=== PATIENT | female | born 1960 | race African-American/Black ===

== ENCOUNTER 2021-06-30 21:07 | Emergency (ER) | payer OTHER, SELFPAY ==
--- NOTE | ~2021-06-30 | XR_ITS ---
EXAM: XR ankle LT min 3V HISTORY: left ankle pain, FALL COMPARISON: None available FINDINGS: Normal mineralization. No acute fracture or dislocation. No lytic or blastic lesion. Old m edial malleolus avulsion fragments. Mild degenerative change at the tibiotalar joint. Achilles and pl margy enthesopathy. No erosion or periosteal change. Soft tissues within normal limits. IMPRESSION: No acute osseous finding in the left ankle. Reviewed, dictated and finalized at location K.
--- NOTE | ~2021-06-30 | CT_ITS ---
EXAMINATION: CT cervical spine wo con DATE: 06/30/2021 22:03 INDICATION: trauma TECHNIQUE: Computed tomography (CT) of the cervical spine was performed without intravenous contrast. Automated exposure control and iterative reconstruction technique were employed. The dose-length pro duct was 634.42 mGy-cm. COMPARISON: None FINDINGS: Counting reference: Craniocervical junction. There are seven cervical type vertebral bodies. Anatomic Variants: None. Vertebral Body Alignment: Intact. Craniocervical junction: Atlantooccipital and atlantoaxial effusion. Alignment intact. Osseous structures/fracture: No evidence of a lytic or blastic process in the visualized spine. N o evidence of acute fracture. Cervical soft tissues: The paraspinal soft tissues planes are maintained. Degenerative changes: Multilevel degenerative disc disease including prominent osteophyte formation. Right C5-6 severe neural foraminal narrowing. Severe central canal stenosis at C5-6. IMPRESSION: No acute fracture or traumatic malalignment in the cervical spine. Reviewed, dictated and finalized at location K.
--- NOTE | ~2021-06-30 | XR_ITS ---
EXAM: XR lumbar spine 2-3V HISTORY: lumbar pain, fall COMPARISON: None available FINDINGS: 5 nonrib-bearing lumbar-type vertebral bodies. Pedicles intact. Normal vertebral body alig nment. Vertebral body heights preserved. Disc spaces maintained. Minimal multilevel marginal osteophy tosis indicating mild multilevel degenerative disc disease. Multilevel facet arthropathy. Possible sp inous process impingement. IMPRESSION: No acute fracture or traumatic malalignment detected in the lumbar spine. Reviewed, dictated and finalized at location K.
--- NOTE | ~2021-06-30 | CT_ITS ---
EXAMINATION: CT brain wo con DATE: 06/30/2021 22:02 INDICATION: trauma TECHNIQUE: Computed tomography (CT) of the head was performed without intravenous contrast. The mA wa s adjusted according to patient size. Iterative reconstruction technique was employed. The dose-lengt h product was 605.33 mGy-cm. COMPARISON: None FINDINGS: No acute intracranial hemorrhage or extra-axial fluid collection. No hydrocephalus, mass, or herniation. No acute ischemic infarct. Unremarkable dural venous sinus attenuation. No acute osseous abnormality. Bilateral inferior maxillary retention cyst/polyps, otherwise the aerated spaces are clear. Mild atrophy. Intracranial arterial calcifications. IMPRESSION: No acute intracranial process. Reviewed, dictated and finalized at location K.
[2021-06-30 21:10] VITALS: BP 182/72; PULSE 70; RESP 20; TEMP 36.2; O2SAT 100
--- NOTE | 2021-06-30 21:23 | ED.GENADULT ---
HPI - General Adult General Chief complaint: Fall Stated complaint: GLF WITH MINOR INJURIES Time Seen by Provider: 06/30/21 21:13 Source: patient Limitations: no limitations History of Present Illness HPI narrative: 60-year-old female presenting to the emergency department after having a ground-level fall. Patient states she went to sit in a hanging chair and the chair was unable to support her weight causing her to fall back and onto the ground from a height of approximately 2 to 3 feet. Patient did strike her head. Patient does have back pain. Patient denies any loss of consciousness. Patient is also complaining of low back pain and left ankle pain. Patient arrived by EMS in a c-collar. Review of Systems Review of Systems: CONSTITUTIONAL: Denies fever, chills, or sweats. EYES: Denies visual changes, redness, or discharge. ENT: Denies rhinorrhea, congestion, sore throat, or otalgia. CARDIOVASCULAR: Denies chest pain, palpitations, or edema. RESPIRATORY: Denies cough or dyspnea. GASTROINTESTINAL: Denies abdominal pain, nausea, vomiting, or diarrhea. GENITOURINARY: Denies dysuria or hematuria. SKIN: Denies rash or itching. MUSCULOSKELETAL: See HPI NEUROLOGIC: Denies headache, numbness, or weakness. Exam Narrative: APPEARANCE: Well appearing, no pain, no distress, well-nourished. HEAD: normocephalic, atraumatic. EYES: PERRLA/EOMI, conjunctivae clear. NOSE: Normal no drainage NECK: Supple. No adenopathy, no masses. Midline tenderness to palpation. No step-offs or deformities. RESPIRATORY: Airway patent, respirations nonlabored. Clear to auscultation bilaterally, no rales, rhonchi, wheezing. CARDIOVASCULAR: Regular rate and rhythm without murmurs rubs or gallops. ABDOMINAL: Soft, nontender, nondistended, normal bowel sounds MUSCULOSKELETAL: Moves all extremities. Mild tenderness of left ankle. No deformity or effusion. NEURO: Alert. Cranial nerves II through XII intact. Grossly intact SKIN: Warm, dry. Normal Color PSYCHIATRIC: Normal affect/mood. Course Course Emergency Course: Patient was updated results of her imaging. Patient was able to ambulate at her baseline. Vital Signs Vital signs: Vital Signs Temperature 97.2 F L 06/30/21 21:10 Pulse Rate 70 06/30/21 21:10 Respiratory Rate 20 05/10/22 21:10 Blood Pressure 182/72 H 06/30/21 21:10 Pulse Oximetry 100 06/30/21 21:10 Temperature 97.2 F L 06/30/21 21:10 Pulse Rate 65 06/30/21 23:42 Respiratory Rate 18 06/30/21 23:42 Blood Pressure 133/58 L 06/30/21 23:42 Pulse Oximetry 97 06/30/21 23:42 Medical Decision Making Vital Signs Vital Signs: Vital Signs Temperature 97.2 F L 06/30/21 21:10 Pulse Rate 70 06/30/21 21:10 Respiratory Rate 20 06/30/21 21:10 Blood Pressure 182/72 H 06/30/21 21:10 Pulse Oximetry 100 06/30/21 21:10 Temperature 97.2 F L 06/30/21 21:10 Pulse Rate 65 06/30/21 23:42 Respiratory Rate 18 06/30/21 23:42 Blood Pressure 133/58 L 06/30/21 23:42 Pulse Oximetry 97 06/30/21 23:42 Imaging Data Radiologist's impression: Impressions Head CT 06/30/21 22:03 IMPRESSION: No acute intracranial process. Cervical Spine CT 06/30/21 22:05 IMPRESSION: No acute fracture or traumatic malalignment in the cervical spine. Lumbar Spine X-Ray 06/30/21 22:23 IMPRESSION: No acute fracture or traumatic malalignment detected in the lumbar spine. Ankle X-Ray 06/30/21 22:25 IMPRESSION: No acute osseous finding in the left ankle. Discharge Plan Discharge Clinical Impression: Head injury, Back pain, Acute ankle pain Patient Disposition: Home, Self-Care Condition: Stable Instructions: Antibiotic Form Additional Instructions: Have close follow-up with your primary care physician if you have any worsening symptoms then please call or return to the emergency department Follow-up/Referrals: PHYSICIAN NOT ON STAFF,NONSTAFF [Primary Ca
--- NOTE | 2021-06-30 21:40 | ECG_ITS ---
Measurements Intervals [place] Rate: 72 P: 55 [place]: 195 QRS: 4 QRSD: 86 T: 9 QT: 402 QTc: 440 Interpretive Statements SINUS RHYTHM NONSPECIFIC T-WAVE ABNORMALITY- INFERIOR LEADS BORDERLINE ECG Electronically Signed On 07-01-2021 9:29:37 CDT by Ed Roberts D.O.
[2021-06-30 23:42] VITALS: BP 133/58; PULSE 65; RESP 18; O2SAT 97
== END 2021-06-30 23:40 | disposition home or self-care (01) ==
PROVIDERS: Emergency Provider Emergency Medicine
DX: S09.90XA Unspecified injury of head, initial encounter (principal); S39.92XA Unspecified injury of lower back, initial encounter; S99.912A Unspecified injury of left ankle, initial encounter; W07.XXXA Fall from chair, initial encounter
CPT/HCPCS: 70450; 72100; 72125; 73610; 93005; 99284